=== PATIENT | female | born 2000 | race African-American/Black ===

== ENCOUNTER → 2024-06-10 13:45 | Outpatient (REF) | payer BC, SELFPAY | LOC: HWRAD 13:45 | PROVIDERS: ATTENDING PHYSICIAN Internal Medicine Rheumatology; FAMILY PHYSICIAN Physician Assistant Medical | DX: M25.50 Pain in unspecified joint (principal); M25.559 Pain in unspecified hip; M24.9 Joint derangement, unspecified | CPT/HCPCS: 72070; 72110; 72170; 73502 ==

== ENCOUNTER 2025-01-24 12:38 | Inpatient (IN) | payer BC, SELFPAY ==
[2025-01-24] VITALS (57 sets, daily range): BP systolic 81–155; BP diastolic 50–105; BMI 30.6
[2025-01-24 10:55] LABS: Glucose - Point of Care 89 mg/dl (70-99)
--- NOTE | 2025-01-24 10:55 | ED.GENMED ---
History of Present Illness
General
Chief Complaint: Unresponsive
Source: ambulance crew
Exam Limitations: clinical condition
Time Seen by Provider: 01/24/25 10:48
History of Present Illness
History of Present Illness:
See MDM
Past History
Past History
ED Past Medical History: Psychiatric
ED Past Surgical History: None
Social History
Tobacco: Non-smoker
Alcohol: None
Drug: None
Phy Exam
Physical Exam
Physical Exam:
See MDM
Course
Orders/Labs/Results
Orders:
Orders
01/24/25 10:48
Test Result ONCE
01/24/25 10:49
Cardiac Monitoring- Treatment ONCE
one to one [ED Special Safety Observation] ONCE
Observation level: One to One
01/24/25 10:53
Electrocardiogram (*1) Urgent
Reason for Study: Other
Other Reason for Exam: overdose
Electrocardiogram (*1) Urgent
Reason for Study: QTc Monitoring
EKG- Treatment ONCE
01/24/25 11:02
Ondansetron Injectable [Zofran] 4 mg IV NOW STA
01/24/25 11:03
Ondansetron Injectable [Zofran] 4 mg .ROUTE .STK-MED ONE
01/24/25 11:12
Fentanyl Citrate/Pf [Sublimaze] 100 mcg .ROUTE .STK-MED ONE
Propofol 1,000,000 Mcg/100 ml [Diprivan] 1,000,000 mcg in 100 ml .ROUTE .STK-MED
01/24/25 11:13
Acetaminophen Urgent
Alcohol Urgent
Complete Blood Count/With Diff Urgent
Comprehensive Metabolic Panel Urgent
HCG, Serum Qualitative Screen Urgent
Salicylate Urgent
Triglycerides Routine
Comment: baseline levels with propofol infusion
01/24/25 11:15
Propofol 1,000,000 Mcg/100 ml [Diprivan] 1,000,000 mcg in 100 ml IV NOW
Indication:: Light Sedation
Begin Infusion:: Now
Goal:: RASS 0 to -2
Maximum dose in mcg/kg/min:: 50
Initial dose based on RASS:: Yes
If RASS is:: +1 or pt hemodynamically unstable (SBP < 90mmHg), initiate at 10 mcg/kg/min
If RASS is:: +2, initiate at 20 mcg/kg/min
If RASS is:: greater than or equal to +3, initiate at 30 mcg/kg/min
Titration Instructions:: Titrate by 5-10 mcg/kg/min every 5 minutes until RASS 0 to -2 achieved.
Taper Instructions:: If RASS is at or below goal for 4 consecutive hours decrease infusion by
Taper Instructions:: 5-10 mcg/kg/min every 2 hours to off.
Over-sedation Instructions:: If CPOT 0-2 (at goal) AND RASS -3 to -5 (below goal) decrease sedative by
Over-sedation Instructions:: 50% first. If pain score remains at goal and RASS remains below goal in
Over-sedation Instructions:: 1 hour, decrease opioid infusion by 50%.
Notify provider:: immediately if patient exhibits signs/symptoms of propofol-related
Notify provider:: infusion syndrome.
Additional Instructions:: Patient MUST be mechanically ventilated and MUST receive analgesia.
01/24/25 11:16
Fentanyl Citrate/Pf [Sublimaze] 100 mcg IV NOW STA
01/24/25 11:24
0.9% Sodium Chloride 1000 ml [Nss] 1,000 ml IV BOLUS
01/24/25 11:27
Urine Drug Abuse Screen Urgent
Date Specimen was Collected: 01/24/25
Time Specimen was Collected: 11:26
01/24/25 11:29
CR Chest Portable - 1 View Urgent
Reason For Exam: tube placement verification
01/24/25 11:37
Straight cath- Treatment ONCE
01/24/25 11:43
Etomidate [Amidate] 40 mg .ROUTE .STK-MED ONE
Sterile Water [Sterile Water For Injection] 10 ml .ROUTE .STK-MED ONE
Vecuronium [place] [Norcuron] 10 mg .ROUTE .STK-MED ONE
01/24/25 11:50
Ampicillin/Sulbactam 3 G [Unasyn] 3 gm 0.9% Sodium Chloride 100 ml [Nss] 100 ml IV NOW
01/24/25 12:20
Admit/Transfer Patient As Directed
Co-Sign Provider:
Level of Care: Inpatient admission
Assign to:: ICU
Physician / Group: Dr. Russo
Diagnosis: Drug and alochol overdose
Reason for Hospitalization: Drug and alochol overdose
Expected length of stay greater than two midnights?: Yes
ELOS- Estimated Length of Stay in days: 3
I certify the patient meets the requirements for IP care: Yes
PRN Pain Medication Management As Directed
May give lesser potent ordered pain med per pt: Yes
preference::
Protocol:: Medication orders for pain may be administered in a
manner that supports deferring to patient preference
when the pt is:
- Requesting an ordered lesser potent pain medication.
Least to most potent pain medications are defined
as: acetaminophen < NSAID < tramadol < opioids
(morphine, oxycodone, hydromorphone).
- Requesting a lesser dose of the same medication IF
ORDERED.
- Requesting a less intrusive route of administration
if both routes are prescribed by the provider (PO <
IV).
Abnormal Lab Results
01/24/25
11:13
Hgb 11.5 L g/dL
(12.0-16.0)
Hct 35.7 L %
(37.0-47.0)
MCV 72.4 L fL
(81.0-99.0)
MCH 23.3 L pg
(27.0-31.0)
MCHC 32.2 L g/dL
(33.0-37.0)
MPV 10.6 H fL
(7.4-10.4)
Neutrophils % 36.3 L %
(42.2-75.2)
Lymphocytes % 52.0 H %
(20.5-51.1)
Chloride 110 H mmol/L
(98-107)
Carbon Dioxide 20 L mmol/L
(22-30)
Glucose 122 H mg/dl
(70-99)
Salicylates < 1.0 L mg/dl
(2.0-20.0)
Acetaminophen < 10 L ug/ml
(10-30)
01/24/25 11:13
01/24/25 11:13
Vital Signs
Initial and Last Documented VS:
Initial Vital Signs
Temp Pulse Resp Pulse Ox
97.9 F 107 14 98
01/24/25 10:47 01/24/25 10:47 01/24/25 10:47 01/24/25 10:47
Last Documented Vital Signs
Temp Pulse Resp BP Pulse Ox
97.9 F 117 17 115/76 100
01/24/25 10:47 01/24/25 12:20 01/24/25 12:20 01/24/25 12:20 01/24/25 12:20
Procedures
Intubations
Procedure completed by: Ever Figueroa DO
Method of Intubation: glidescope
Tube size (cm): 7.5
Placement confirmed by: auscutation, CXR, capnography and direct visualization
Breath sounds after intubation: equal
Intubation complications: no complications
MDM/Problems Addressed
Differential Diagnosis Includes:
HPI and MDM Narrative:
24-year-old female presenting for evaluation of overdose. Per EMS, they were called when the boyfriend had gotten a call from the patient. He indicates that she took about 25 to 30 tablets of gabapentin (dosing unknown) and an unknown amount of
alcohol. Per EMS, she was awake and alert when they arrived. When she presented, she is now minimally responsive. She does respond to painful stimuli but does not respond to verbal stimuli. Pupils are dilated. No evidence of self injury noted.
During my evaluation, patient started to vomit. It became a concern when it was noted that vomit was still in her airway. Given the airway compromise, patient was intubated for her safety
Physical exam
General: Minimally responsive
HEENT: Not protecting airway, pupils dilated but responsive
Neck: appears supple
CV: No evidence of cyanosis
Resp: No accessory muscle use
Abd: Non-distended
Extremities: No deformities
Neuro: Not alert, GCS of 7
Psych: Flat affect
Skin: Intact
Problems Addressed including Acute and Chronic Conditions affecting care:
1. Overdose
Acuity: acute
Prognosis: unstable
Details: Given the inability to protect airway, patient intubated for her Safety
2. Aspiration
Acuity: acute
Prognosis: stable
Details: Unasyn started
Updates
11:17 AM patient admitted without difficulty. Some food product was noted in the airway.
I attempted to call mother but no answer
Patient started on Unasyn for prophylaxis due to aspiration
12:20 PM family at bedside and indicate that she has tried to hurt herself in the past. Mother took a bottle of gabapentin. It was 300 mg tablets
12:45 PM case discussed with poison control and spoke to nurse Vanita. She discussed symptomatic care
Differential Diagnosis (but not limited to): Intentional overdose, alcohol intoxication
Testing considered: Chest x-ray
Drug therapy (if applicable): OTC meds, please see d/c instruction regarding Rx drugs
Amount and/or Complexity of Data Reviewed
Clinical info obtained from: EMS
External data reviewed: N/A
Labs I independently reviewed (but not limited to): Elevated alcohol level
Radiology: N/A
Pulse Ox: not hypoxic
EKG independently reviewed: Sinus tachycardia, normal axis, no STEMI, intervals within normal limits
Sheet Cutting Operator: Sinus tachycardia
Critical Care: the high probability of a clinically significant, sudden or life threatening deterioration of the neuro vascular system(s) required my full and direct attention, intervention and personal management. The aggregate critical care time
was 33 minutes. This time is in addition to time spent performing reported procedures but includes the following:
[x] Data Review and interpretation
[x] Patient assessment and monitoring of vital signs
[x] Documentation
[x] Medication orders and management
Risk of Complication:
Social Determinants of health: Good social support
Discussed with other providers: Hospitalist
Escalation of Care includes Admit/Obs: Given the overdose and inability protect airway, patient intubated and admitted
Occasional wrong word or 'sound a like' substitutions may have occurred due to the inherent limitations of voice recognition software. Read the chart carefully and recognize, using context, where substitutions have occurred.
*Critical Care Note
Total Time (30-74mins, 75-104mins- exclusive of procedures): 33 min
ED Attending Note
-
Portions of this chart may have been created with voice recognition software.� Occasional wrong word or��sound alike� substitutions may have occurred due to the inherent limitations of voice recognition software.
Discharge Plan
Departure
Patient Disposition: Admit
Date of Disposition: 01/24/25
Time of Disposition: 11:50
Admit to: ICU
Presentation/result/management discussed w/ accepting MD/DO: Hospitalist
Discharge Problem:
Overdose, Aspiration into airway, Respiratory distress
Interventions
Interventions:
*Risk Screen - Suicide Last Done: 01/24/25 10:47
*General Assessment Last Done: 01/24/25 10:47
*Neglect/Abuse Screening Last Done: 01/24/25 10:47
*ED- Fall Risk Assessment Last Done: 01/24/25 11:23
*ED COVID-19 Vaccine History Last Done: 01/24/25 11:23
ED- Neurological Assessment Last Done: 01/24/25 11:21
[2025-01-24] MEDS: ZOFRAN 4 MG IV (11:03)
[2025-01-24] MEDS: SUBLIMAZE 100 MCG IV ×2 (11:15→12:47)
[2025-01-24] MEDS: DIPRIVAN 100 IV ×3 (11:19→17:57)
[2025-01-24] MEDS: NSS 1000 IV ×2 (11:24→22:19)
[2025-01-24 11:34] LABS: HCG, Serum Qualitative Screen Negative
[2025-01-24 11:37] LABS: ALT (SGPT) < 10 U/L (0-35); AST (SGOT) 16 U/L (14-36); Acetaminophen < 10 ug/ml (10-30); Alcohol 107 mg/dl; Alkaline Phosphatase 83 U/L (38-126); Blood Urea Nitrogen 8 mg/dl (7-17); Calcium 9.4 mg/dl (8.4-10.2); Carbon Dioxide 20 mmol/L (22-30); Chloride 110 mmol/L (98-107); Estimated Creatinine Clearance 124 ml/min; Glucose 122 mg/dl (70-99); Potassium 3.6 mmol/L (3.5-5.1); Salicylate < 1.0 mg/dl (2.0-20.0); Sodium 142 mmol/L (135-145); Total Bilirubin 0.4 mg/dl (0.2-1.3); Total Protein 7.2 g/dl (6.3-8.2); Triglycerides 62 mg/dl (10-149); eGFR > 60.00
[2025-01-24 11:40] LABS: Hematocrit 35.7 % (37.0-47.0); Hemoglobin 11.5 g/dL (12.0-16.0); Mean Corp Hgb Conc. 32.2 g/dL (33.0-37.0); Mean Corpuscular Hgb 23.3 pg (27.0-31.0); Mean Corpuscular Volume 72.4 fL (81.0-99.0); Mean Platelet Volume 10.6 fL (7.4-10.4); Platelet Count 388 10^3/uL (130-400); Red Blood Cell Count 4.93 10^6/uL (4.20-5.40); Red Cell Dist. Width 14.2 % (11.5-14.5); White Blood Cell Count 5.5 10^3/uL (4.8-10.8)
--- NOTE | 2025-01-24 11:42 | PHANOTE ---
Med Rec Note:
Unable to interview pt, pt being intubated. Home med list compiled from ECW and Dr Guthrie. Left unconfirmed.
[2025-01-24 11:47] LABS: Amphetamines Negative (Negative); Barbiturates Negative (Negative); Benzodiazepines Negative (Negative); Buprenorphine Negative (Negative); Cocaine Negative (Negative); Marijuana Negative (Negative); Methadone Negative (Negative); Methamphetamines Negative (Negative); Opiates Negative (Negative); Phencyclidine Negative (Negative); Tricyclic Antidepressants Negative (Negative)
[2025-01-24 12:06] LABS: % Basophils 1.1 % (0-2); % Immature Granulocytes 0.2 % (0-0.5); % Monocytes 8.4 % (1.7-9.3); % Neutrophils 36.3 % (42.2-75.2); Absolute Basophils 0.1 10^3/uL (0-0.2); Absolute Eosinophils 0.1 10^3/uL (0-0.7); Absolute Lymphocytes 2.9 10^3/uL (1.2-3.4); Absolute Monocytes 0.5 10^3/uL (0.1-0.6); Nucleated Red Blood Cells % 0 %
[2025-01-24] MEDS: UNASYN IV (12:26)
--- NOTE | 2025-01-24 12:46 | CON.INTV ---
Consultation
Consultation Request
Date/Time Consultation Requested: 01/24/2025
Date/Time Consultation Performed: 01/24/2025
Medical History
-
Chief Complaint: overdose
History of Present Illness:
Ms. Aleisha Artis is a 24yo F w psychiatric pmh presenting to ED for evaluation of overdose. Pt called her boyfriend, who then called EMS. He indicates she took 25-30 tablets of gabapentin with alcohol. She was awake and alert upon EMS
arrival. On ED arrival, she is unresponsive to verbal stimuli and vomiting. Vomit noted in airway. Pt intubated to protect airway.
Past Medical History
Past Medical History: Psychiatric
Past Surgical History: None
Allergies / Home Medications
Allergies
Allergy/AdvReac Type Severity Reaction Status Date / Time
coconut Allergy itching in Verified 01/24/25 10:52
throat
mold Allergy Unknown Verified 01/24/25 10:52
pineapple Allergy itching in Verified 01/24/25 10:52
throat
shrimp Allergy itching in Verified 01/24/25 10:52
throat
mildew Allergy Unknown Uncoded 08/13/17 04:33
trees Allergy Unknown Uncoded 08/13/17 04:33
Home Medications
�Medication �Instructions �Recorded �Confirmed �Last Taken �Type
duloxetine 60 mg capsule,delayed 60 mg PO DAILY 01/24/25 Unknown History
release
gabapentin 100 mg capsule 100 mg PO TID 01/24/25 Unknown History
gabapentin 300 mg capsule 300 mg PO BID 01/24/25 Unknown History
norethindrone 1.5 mg-ethinyl 1 tab PO DAILY 01/24/25 Unknown History
estradiol 30 mcg(21)/iron 75 mg(7)
tablet (Junel FE .02/28 (28))
topiramate 50 mg tablet 50 mg PO DAILY 01/24/25 Unknown History
Review of Systems
-
Unable to Obtain full review of systems at this time due to: Patient Intubation
Vitals / Labs / Diagnostic Testing
Vital Signs
Temp Pulse Resp BP Pulse Ox
97.9 F 117 17 115/76 100
01/24/25 10:47 01/24/25 12:20 01/24/25 12:20 01/24/25 12:20 01/24/25 12:20
Lab Data
01/24/25 11:13
01/24/25 11:13
Diagnostic Testing:
Physical Exam
-
HEENT: Normocephalic, Moist Mucous Membranes, Other (NG tube) and Other (pt intubated)
Cardiovascular: S1/S2 and Regular Rhythm
Respiratory: Clear and Non-Labored Respirations
GI: Soft, Non Distended, Flat, Non Tender and Normal Bowel Sounds
Skin: Warm
Assessment
-
Assessment:
24yo F w psychiatric pmh presenting to ED for evaluation of overdose. Pt called her boyfriend, who then called EMS. He indicates she took 25-30 tablets of gabapentin with alcohol. Pt intubated to protect airway in setting of vomiting.
Plan:
Drug and Alcohol Overdose
- UDS positive for salicylates and acetaminophen and alcohol
- pt intubated to protect airway
- ECG: sinus tachycardia, nonspecific T wave abnormality
- CXR: no focal airspace disease
- thiamine, folic acid
- ativan, fental prn
- abg, mg, phosphous in AM
- TSH, vit B12, TG in am
Aspiration
- NPO
- aspiration precautions
- CXR clear for pneumonia
Psychiatric Illness
- hold home medicines
Microcytic anemia
- workup outpt
- monitor
- repeat CBC
Diet: NPO
DVT ppx: lovenox
Code status:
[2025-01-24] MEDS: SUBLIMAZE 100 IV (13:17)
--- NOTE | 2025-01-24 13:54 | PTCARENOTE ---
Pt admitted from ED at 1300. Intubated and ventillated on propofol gtt for rass -2. See assessment. CHG bath performed. Purewick placed. VSS. Restraints applied for protection. Plan of care discussed with family. Big Data Admin to bedside.
[2025-01-24 14:00] LABS: B.E. -5.3 mmol/L; HCO3 18.6 mmol/L (21-28); PCO2 30 mmHg (32-35); PO2 268 mmHg (83-108)
[2025-01-24] MEDS: SUBLIMAZE 90 MCG IV (14:22)
[2025-01-24] MEDS: FOLVITE 50.2 MG IV (14:38)
[2025-01-24] MEDS: KCL 270 MEQ IV (14:41)
[2025-01-24] MEDS: THIAMINE INJECTION 200 MG IV (14:41)
[2025-01-24 14:50] LABS: Magnesium 2.1 mg/dl (1.6-2.3)
--- NOTE | 2025-01-24 14:56 | HPS.HSE ---
Addendum entered and electronically signed by Apryl Russo MD 01/24/25 16:46:
I personally performed a history and physical exam of the patient and discussed management with the resident. I reviewed the resident's note and agree with the documented findings and plan of care HPI/CC unless documented in [facility].
GENERAL: well developed, well nourished, female in no apparent distress
HEENT: NC/AT intubated
HEART: regular rate and rhythm, +S1, +S2
LUNGS : clear to auscultation bilaterally
ABDOM: soft, nontender, nondistended, + bowel sounds
EXT: no cyanosis, clubbing, or edema
NEUROLOGIC: intubated and sedated
drug overdose--presumed intentional with taking reported 25 tabs of gabapentin + ETOH--urine tox screen negative, blood alcohol level 0.1--admit to ICU--intubated for airway protection--consult bottling room worker--wean to extubation as per pulm--cont
propofol and fentanyl--cont unasyn for possible aspiration pna--restraints PRN--poison control contacted by Dr. Figueroa (ED)--symptomatic management
ETOH intoxication--alcohol level 0.1--cont MSAS--cont thiamine and folate to prevent Wernicke's encephalopathy
Presumed chronic iron deficiency anemia--from monthly menses--Hemoglobin is 11.5 and MCV is 72.4--Ordered iron, TIBC, ferritin, folate, B12, folate
Depression-- Has a previous history of depression documented in prior records and was stated by family members at bedside-- Hold gabapentin, duloxetine, topiramate--Once patient is extubated, consult psychiatry and possibly BCares
DVT prophy--Lovenox
code status--Full code
Original Note:
Family Physician
-
Family Physician: An Ferreira
Chief Complaint
-
Drug overdose
History of Present Illness
24 year old female patient with past medical history of depression presented to [facility] for drug overdose. She had taken 25 tablets of gabapentin with alcohol and then called her boyfriend before passing out. Boyfriend then called EMS.
She was unresponsive when she presented to the emergency department and had vomiting so was then intubated to protect her airway.
Medical History
Past Medical History
Past Medical History: Reports Psychiatric (Depression)
Past Surgical History: Reports None
Social History
Unable to obtain full social history at this time due to: Patient Intubation
Tobacco: Vaping
Alcohol: None
Drug: None
Personal: Partner
Living: With Family
Employment: Employed
Family History
Family History: Not pertinent
Allergies / Home Medications
Allergies reflects when Allergies were last updated in [facility] [facility].
Home Medications with original date entered in [facility]
Allergy/Medication List:
Allergies
Allergy/AdvReac Type Severity Reaction Status Date / Time
coconut Allergy itching in Verified 01/24/25 10:52
throat
mold Allergy Unknown Verified 01/24/25 10:52
pineapple Allergy itching in Verified 01/24/25 10:52
throat
shrimp Allergy itching in Verified 01/24/25 10:52
throat
mildew Allergy Unknown Uncoded 08/13/17 04:33
trees Allergy Unknown Uncoded 08/13/17 04:33
Home Medications
duloxetine 60 mg capsule,delayed release 60 mg PO DAILY 01/24/25
gabapentin 100 mg capsule 100 mg PO TID 01/24/25
gabapentin 300 mg capsule 300 mg PO BID 01/24/25
norethindrone 1.5 mg-ethinyl estradiol 30 mcg(21)/iron 75 mg(7) tablet (Junel FE 1.5/30 (28)) 1 tab PO DAILY 01/24/25
topiramate 50 mg tablet 50 mg PO DAILY 01/24/25
If medication reconciliation has not been performed, why?: Unresponsive
Review of Systems
-
Unable to obtain full review of systems at this time due to: Patient Intubation
Physical Exam
Vital Signs
Vital Signs
Temp Pulse Resp BP Pulse Ox
97.7 F 81 18 102/70 100
01/24/25 13:16 01/24/25 14:15 01/24/25 14:15 01/24/25 14:15 01/24/25 14:15
Physical Exam
General: Intubated
Respiratory: Clear
Cardiac: S1/S2 and Regular Rhythm
GI: Soft, Non Distended, Normal Bowel Sounds and Other (Patient has nasogastric tube)
Skin: Warm and Dry
Neuro: Sedated
Laboratory Results
-
01/24/25 11:13
01/24/25 11:13
Laboratory Results
pH 7.40 (7.35-7.45) 01/24/25 13:40
pCO2 30 mmHg (32-35) L 01/24/25 13:40
pO2 268 mmHg (83-108) H 01/24/25 13:40
HCO3 18.6 mmol/L (21-28) L 01/24/25 13:40
Total Bilirubin 0.4 mg/dl (0.2-1.3) 01/24/25 11:13
AST 16 U/L (14-36) 01/24/25 11:13
ALT < 10 U/L (0-35) 01/24/25 11:13
Alkaline Phosphatase 83 U/L (38-126) 01/24/25 11:13
Data Reviewed
-
Lab Data: Labs Reviewed by me and Discussed with Physician
Impression/Plan
-
Medications are not yet confirmed.
Unintentional drug and alcohol overdose:
- Due to vomiting, patient was intubated to protect her airway and prevent aspiration because with vomiting and decreased mental status she is at high risk for aspiration.
- Propofol was used to sedate patient as it is easy to titrate and has quick onset of action
- Coal Cager is consulted
- Urine drug screen positive for alcohol
- Started on Unasyn for aspiration pneumonia
- Start patient on MSAS protocol to prevent Wernicke's encephalopathy, correct any nutritional deficiencies, and manage electrolyte imbalances
- Soft restraints to prevent patient from removing her lines or self extubating during a period of agitation from alcohol withdrawal
- Plan to extubate in 24 hours
- Keep potassium over 4 and magnesium over 2 to prevent cardiac arrhythmias, keep monitoring electrolytes
- Potassium is 3.6, potassium was ordered
- ED doctors called poison control whom suggested symptomatic management
Presumed chronic iron deficiency anemia:
- Hemoglobin is 11.5 and MCV is 72.4
- Ordered iron, TIBC, ferritin, folate, B12, folate
Depression:
- Has a previous history of depression documented in prior records and was stated by family members at bedside.
- Hold gabapentin, duloxetine, topiramate
- Check TSH in the morning
- Once patient is extubated, consult psychiatry
DVT prophylaxis is Lovenox
Full code
--- NOTE | 2025-01-24 15:16 | CM ---
Patient seen at bedside in ED with physicians and intubated. Patient mother and partner at bedside. Patient s/p presumed overdose, per mother and partner. Patient goes back and forth between homes, currently was staying with mother. Patient PCP is
Dr. Ferreira and Xenia MCKEON from [facility]. Patient uses the [facility] in [place] for pharmacy needs per patient mother. Patient information unavailable at this time other than patient mother/partner. Patient with no DME at this
time. CM will continue to follow for discharge planning needs.
Plan; pending functional status at this time.
[2025-01-24] MEDS: SUBLIMAZE 50 MCG IV (15:25)
[2025-01-24] MEDS: PRECEDEX 100 IV (15:53)
--- NOTE | 2025-01-24 17:41 | PTCARENOTE ---
Pt awake, following commands, thrashing in bed attempting to extubate self. Machine Feller to bedside and orders precedex to be started, Propofol to be weaned off and SAT/SBT. During SBT pt would have spells of appropriate breathing followed by
apneic spells. Fentanyl ordered off and apnea continues. Pt changed to SIMV and continue to await increased resp drive for SBT.
--- NOTE | 2025-01-24 17:52 | PTCARENOTE ---
Children Counselor to bedside and ordered sedation to restart. Plan for SAT/SBT tomorrow
[2025-01-24] MEDS: LOVENOX 40 MG SC (17:56)
--- NOTE | 2025-01-24 20:27 | PTCARENOTE ---
Handoff report received from off going RN. Dual RN gtt signoff completed. Patient received in bed on mechanical ventilation. Propofol gtt at 20 mcg/kg/min (10.9 ml/hr), Precedex at 0.4 mcg/kg/hr (8.9 ml/hr) , and Fentanyl gtt at 25 mcg/hr (2.5
ml/hr). Propofol and Precedex placed on hold for assessment. The patient opened their eyes to verbal commands. MAEx4. Follows simple commands. Patient reached multiple times for her ETT. Plan of care for the shift reviewed with the patient and
reorientation provided. Reviewed need for restraints with the patient. The pt nodded their understanding and continued to reach for their ETT. Propofol and Precedex restarted. NSR on the monitor. Temp 96.8 F. Multiple warm blankets placed. Room
temperature adjusted. +pulses throughout. SpO2 at 100 % on mech. ventilation. #7.5 ETT at 24 at the left lip on setting SIMV 14/450/+5/40%. Crackles to bases. PT suctioned for scant amount. +BS. Lt nare NGT to LIWS. Placement verified via
auscultation. Purewick in place. Mouth care provided. Patient turned and repositioned. Family at the bedside. Safety measures maintained.
--- NOTE | 2025-01-24 22:27 | PTCARENOTE ---
Patients SBP has been in the mid 80s for 2 hours. MAP >65. LINUX SYSTEMS ADMINISTRATOR made aware and Normal Saline bolus 1 liter and LR maintenance fluids ordered.
[2025-01-24] MEDS: LR 1000 IV (23:26)
[2025-01-25] VITALS (36 sets, daily range): BP systolic 91–142; BP diastolic 55–112; PULSE 48; BMI 30.6
[2025-01-25] MEDS: DIPRIVAN 100 IV (03:22)
[2025-01-25 04:06] LABS: B.E. -3.7 mmol/L; HCO3 20.1 mmol/L (21-28); PCO2 31 mmHg (32-35); PO2 240 mmHg (83-108); pH 7.42 (7.35-7.45)
[2025-01-25 04:09] LABS: O2 Therapy 40%
[2025-01-25 04:42] LABS: PT 14.5 Sec (11.4-14.6)
[2025-01-25 04:47] LABS: Hematocrit 28.4 % (37.0-47.0); Hemoglobin 9.3 g/dL (12.0-16.0); Mean Corp Hgb Conc. 32.7 g/dL (33.0-37.0); Mean Corpuscular Hgb 23.5 pg (27.0-31.0); Mean Corpuscular Volume 71.7 fL (81.0-99.0); Mean Platelet Volume 9.9 fL (7.4-10.4); Platelet Count 232 10^3/uL (130-400); Red Blood Cell Count 3.96 10^6/uL (4.20-5.40); White Blood Cell Count 3.9 10^3/uL (4.8-10.8)
[2025-01-25 05:06] LABS: Blood Urea Nitrogen 6 mg/dl (7-17); Calcium 8.4 mg/dl (8.4-10.2); Carbon Dioxide 18 mmol/L (22-30); Chloride 115 mmol/L (98-107); Estimated Creatinine Clearance > 125 ml/min; Glucose 92 mg/dl (70-99); Iron 58 ug/dl (37-170); Phosphorus 2.9 mg/dl (2.5-4.5); Potassium 3.9 mmol/L (3.5-5.1); Sodium 143 mmol/L (135-145); eGFR > 60.00
[2025-01-25 05:14] LABS: Magnesium 1.7 mg/dl (1.6-2.3)
[2025-01-25 05:15] LABS: Percent Saturation 21 % (20-50); Total Iron Binding Capacity 272 ug/dl (265-497)
[2025-01-25 05:21] LABS: % Basophils 0.5 % (0-2); % Eosinophils 3.1 % (0-6); % Lymphocytes 53.7 % (20.5-51.1); % Monocytes 7.8 % (1.7-9.3); % Neutrophils 34.9 % (42.2-75.2); Absolute Eosinophils 0.1 10^3/uL (0-0.7); Absolute Lymphocytes 2.1 10^3/uL (1.2-3.4); Absolute Monocytes 0.3 10^3/uL (0.1-0.6); Absolute Neutrophils 1.4 10^3/uL (1.4-6.5); Nucleated Red Blood Cells % 0 %; Reticulocyte Count 1.2 % (0.4-2.8)
[2025-01-25 05:28] LABS: TSH 7.95 uIU/ml (0.47-4.68)
[2025-01-25] MEDS: SUBLIMAZE 50 MCG IV (05:56)
[2025-01-25 06:59] LABS: Vitamin B12 304 pg/ml (239-931)
--- NOTE | 2025-01-25 07:33 | W.PN.INTV ---
Today's Communication / Plan
Recommendations
- Patient tolerated SAT/SBT well, successfully extubated
- Psychiatric consult
- If patient continues to do well by end of the day, currently transferred out of ICU, cabin cleaner service will sign off, please call as needed
Assessment
-
24yo F w psychiatric pmh presenting to ED for evaluation of overdose. Pt called her boyfriend, who then called EMS. He indicates she took 25-30 tablets of gabapentin with alcohol. Pt intubated to protect airway in setting of vomiting.
#1. Drug overdose, suspect Gabapentin and alcohol, with resultant respiratory failure. Patient was intubated due to her inability to protect airway and aspiration with vomiting.
- Patient awake alert this morning, successfully extubated 01/25, transition to nasal cannula
- ABG reviewed, unremarkable pH and PO2 normal
- No obvious infiltrate noted on chest x-ray, hold further antibiotics for now.
- Continue to hold gabapentin
- Continue thiamine and folic acid
- Off propofol, fentanyl and Precedex
- Ativan 2 mg IV every 4 as needed agitation
- Once patient improved and ready to come off mechanical ventilation, will request psychiatry consultation
- B12 304, TSH slightly elevated at 7.9
- DVT prophylaxis with subcu Lovenox
- Psychiatric consult
Critical Care time 45 mins -- The patient is admitted for acute critical illness for the treatment of vital organ failure and/or prevention of further life-threatening conditions. Total care includes time spent in review of history, physical exam,
medications, hemodynamic/ventilator parameters, laboratory data, imaging and discussion with house staff, pharmacy, respiratory therapy, manifest/order organizer print orders, and nursing.
Subjective Dataa
Subjective Data
Date of Service:
Date of Service: January 25, 2025
Subjective:
Patient examined before extubation and then again after she was extubated. Appears comfortable, in no acute distress.
Review of Systems
Genitourinary: Other (All 14 systems reviewed and negative except as stated above in the history of present illness.)
Objective Data
Data Reviewed
Vital Signs / I&O / Oxygen:
Vital Signs
Temp Pulse Resp BP Pulse Ox
97 F 52 14 98/75 100
01/24/25 23:27 01/25/25 06:30 01/25/25 06:30 01/25/25 06:30 01/25/25 06:30
Intake and Output
01/24/25 01/25/25 01/26/25
06:59 06:59 06:59
Intake Total 297.1 / 297.1
Output Total 1040 / 1040
Balance -742.9 / -742.9
SaO2 [P-SIMV] 100
SaO2 [A/C] 100
SaO2 100
Physical Exam
General: Comfortable
HEENT: Normocephalic
Cardiovascular: S1-S2
Respiratory: Clear and Non-Labored Respirations
GI: Soft and Non Distended
Neurology: Awake and Alert
Skin: Warm
Labs/Micro/Reports
Lab Data
01/25/25 04:24
01/25/25 04:24
Laboratory Results
01/24/25 01/25/25 01/25/25
13:40 03:55 04:24
PT 14.5
INR 1.10
pH 7.40 7.42
pCO2 30 L 31 L
pO2 268 H 240 H
HCO3 18.6 L 20.1 L
O2 Delivery Level 40%
[2025-01-25 08:34] LABS: Ferritin 28.6 ng/ml (6.24-137)
[2025-01-25] MEDS: LR 1000 IV (08:58)
--- NOTE | 2025-01-25 09:07 | PTCARENOTE ---
Upon initial assessment, patient was lightly sedated and following commands/nodding head appropriately. ICU MD was also at bedside and discussed plan to extuvate with patient and RN. SBT was initiated around 0800, patient tolerating trial thus far
and expressed with hand gestures that she really wants the breathing tube out. MD placed ok to extubate order and RN notified RT. Pt continues to be on IVF per order. See MAR/flowsheets for further care details.
[2025-01-25] MEDS: MIRALAX TUBE (09:57)
[2025-01-25 10:04] LABS: Folate 6.4 ng/ml (2.76-20)
[2025-01-25] MEDS: THIAMINE INJECTION 200 MG IV (10:38)
--- NOTE | 2025-01-25 12:33 | PTCARENOTE ---
Patient was extubated this morning around 1015 am, tolerating po liquid intake well, RN reached out to MD to place appropriate diet order. RN walked with patient to the bathroom for 1x void. Pt is quiet, withdrawn, but nodding yes/no appropriately.
Pt family and significant other is at the bedside. RN relayed to patient and family that plan is for pt to see psychiatrist and that we will come up with a safe discharge plan.
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
[2025-01-25] MEDS: FOLVITE 50.2 MG IV (14:08)
[2025-01-25] MEDS: TYLENOL 650 MG PO ×2 (14:16→21:28)
--- NOTE | 2025-01-25 14:50 | W.PN.HOSP.TC ---
Addendum entered and electronically signed by Apryl Russo MD 01/25/25 15:20:
I saw and evaluated the patient independently. I reviewed the resident�s note and agree with findings and plan as documented by Dr. Lazar.
GENERAL: well developed, well nourished, female in no apparent distress
HEENT: NC/AT intubated
HEART: regular rate and rhythm, +S1, +S2
LUNGS : clear to auscultation bilaterally
ABDOM: soft, nontender, nondistended, + bowel sounds
EXT: no cyanosis, clubbing, or edema
NEUROLOGIC: intubated and sedated
drug overdose-- intentional (pt confirmed intent to psych) with taking reported 25 tabs of gabapentin + ETOH--urine tox screen negative, blood alcohol level 0.1--intubated for airway protection now extubated--apprec art installer--stop propofol and
fentanyl-- unasyn stopped per pulm--restraints PRN--poison control contacted by Dr. Figueroa (ED)--symptomatic management--apprec psych input--1:1
ETOH intoxication--alcohol level 0.1--cont MSAS--cont thiamine and folate to prevent Wernicke's encephalopathy
hypomagnesemia--replete
Presumed chronic anemia--from monthly menses--not iron deficient--B12 low normal, will replete
abnormal TSH--repeat--no h/o of hypothyroid
Depression-- Has a previous history of depression documented in prior records and was stated by family members at bedside-- Hold gabapentin, duloxetine, topiramate--apprec psychiatry and possibly BCares
DVT prophy--Lovenox
code status--Full code
Original Note:
Today's Communication/Plan
-
- continue 1:1
- Follow psychiatry
- trend CBC and CMP
Assessment / Plan
Assessment / Plan
confirmed intentional drug and alcohol overdose
suicide attempt:
- Patient was successfully extubated today
- Urine drug screen positive for alcohol on admission
- Spring Production Supervisor signed off
- Unasyn was discontinued
- Start patient on MSAS protocol to prevent Wernicke's encephalopathy, correct any nutritional deficiencies, and manage electrolyte imbalances
- Soft restraints to prevent patient from removing her lines or self extubating during a period of agitation from alcohol withdrawal
- Keep potassium over 4 and magnesium over 2 to prevent cardiac arrhythmias, keep monitoring electrolytes
- Potassium is 3.9, magnesium 1.7, magnesium sulfate ordered
- Upgraded patient to clear liquids
- Speech therapy consulted
- 1:1 after extubation
presumed drug induced Leukopenia:
- Most likely cause is her at home medication of duloxetine, gabapentin, topiramate since they can cause decreased WBC count
- continue to trend wbc count
Hypothyroidism:
- TSH level is 7.9
- Ordered a T4
- No clinical fx of hypothyroidism, no previous history of hypothyroidism, will continue to observe tsh levels
Presumed thalassemia trait vs anemia of chronic disease:
- Hemoglobin is 9.3 and MCV is 72.4, RDW normal
- Ordered iron, TIBC which were normal
- ferritin,folate,b12 normal
Depression:
- Has a previous history of depression documented in prior records and was stated by family members at bedside.
- Hold gabapentin, duloxetine, topiramate
- Psych following, patient has an extensive psychiatric history with fibromyalgia, depression, substance abuse, ptsd, suicide attempt
DVT prophylaxis is Lovenox
Full code
Anticipated Discharge: 24 - 48 hours
Subjective/Interval History
-
Date of Service: January 25, 2025
Patient was extubated today however did not want to give a history.
Objective Data
-
Labs:
Laboratory Results
01/25/25 01/25/25
03:55 04:24
WBC 3.9 L
Hgb 9.3 L
Hct 28.4 L
Plt Count 232 D
PT 14.5
INR 1.10
HCO3 20.1 L
Sodium 143
Potassium 3.9
Chloride 115 H
Carbon Dioxide 18 L
BUN 6 L
Creatinine 0.6
Glucose 92
Calcium 8.4
Vital Signs:
Vital Signs
Temp Pulse Resp BP Pulse Ox
98.4 F 71 18 92/55 100
01/25/25 10:41 01/25/25 12:30 01/25/25 12:30 01/25/25 12:30 01/25/25 12:30
I&O
01/24/25 01/25/25 01/26/25
06:59 06:59 06:59
Intake Total 297.1 / 414.9 1087.8 / 1087.8
Output Total 1040 / 1040 50 / 50
Balance -742.9 / -625.1 1037.8 / 1037.8
Review of Systems
-
Unable to obtain full review of systems at this time due to: Patient Non-verbal
Physical Exam
-
General: Well Developed and Well Nourished
Respiratory: Clear to Auscultation
Cardiac: Regular Rhythm
GI: Soft, Nontender, Nondistended and Normal Bowel Sounds
Musculoskeletal: No Clubbing, No Cyanosis and No Edema
Skin: Warm and Dry
Neuro: Awake and Alert
Data Reviewed
-
Labs: Labs Reviewed by me and Discussed with Physician
[2025-01-25] MEDS: MAGNESIUM SULFATE 102 GRAMS IV (15:14)
--- NOTE | 2025-01-25 16:57 | PTCARENOTE ---
Patient is now down graded to tele status; voiding in bathroom with standby assist; tolerating clear liquids; patient is very tired this shift and is in and out of resting all day. Pt is communicative with staff and family members, but is otherwise
withdrawn and quiet still. RN updated family on plan of care and possible need to discharge to a mental health facility. Family seems very supportive of daughter and expresses thanks to staff. See MAR/flowsheets for further care details.
[2025-01-25] MEDS: VITAMIN B-12 1000 MCG PO (17:15)
[2025-01-25] MEDS: LOVENOX SC (17:15)
--- NOTE | 2025-01-25 18:16 | PTCARENOTE ---
Texted hospitalist team about patient 1x emesis episode and feelings of nausea. RN asked for an antiemetic prn. Awaiting orders
[2025-01-25] MEDS: ZOFRAN 4 MG IV (18:37)
--- NOTE | 2025-01-25 19:34 | PTCARENOTE ---
1:1 paper tubed to 2 north to be added to chart
[2025-01-26 03:05] VITALS: BP 122/70
[2025-01-26] MEDS: TYLENOL 650 MG PO ×2 (05:11→14:30)
[2025-01-26 07:04] LABS: TSH Reflex To Free T4 1.37 uIU/ml (0.47-4.68)
[2025-01-26 07:05] VITALS: BP 107/53
[2025-01-26] MEDS: MIRALAX 17 GRAMS TUBE (07:57)
[2025-01-26] MEDS: THIAMINE INJECTION 200 MG IV (07:58)
[2025-01-26] MEDS: VITAMIN B-12 1000 MCG PO (07:58)
[2025-01-26 09:01] LABS: Hematocrit 32.8 % (37.0-47.0); Hemoglobin 10.4 g/dL (12.0-16.0); Mean Corp Hgb Conc. 31.7 g/dL (33.0-37.0); Mean Corpuscular Hgb 23.2 pg (27.0-31.0); Mean Corpuscular Volume 73.1 fL (81.0-99.0); Mean Platelet Volume 10.9 fL (7.4-10.4); Platelet Count 309 10^3/uL (130-400); Red Blood Cell Count 4.49 10^6/uL (4.20-5.40); Red Cell Dist. Width 13.8 % (11.5-14.5); White Blood Cell Count 5.3 10^3/uL (4.8-10.8)
[2025-01-26 09:10] LABS: ALT (SGPT) 10 U/L (0-35); AST (SGOT) 22 U/L (14-36); Albumin 3.5 g/dl (3.5-5.0); Alkaline Phosphatase 96 U/L (38-126); Blood Urea Nitrogen 4 mg/dl (7-17); Calcium 9.4 mg/dl (8.4-10.2); Carbon Dioxide 22 mmol/L (22-30); Chloride 111 mmol/L (98-107); Estimated Creatinine Clearance > 125 ml/min; Glucose 90 mg/dl (70-99); Potassium 3.7 mmol/L (3.5-5.1); Sodium 142 mmol/L (135-145); Total Bilirubin 0.8 mg/dl (0.2-1.3); Total Protein 6.5 g/dl (6.3-8.2); eGFR > 60.00
--- NOTE | 2025-01-26 09:14 | W.PN.HOSP.TC ---
Today's Communication/Plan
-
- f/u psychiatry
- Continue MSAS protocols
- Monitor for signs of alcohol withdrawl
Assessment / Plan
Assessment / Plan
confirmed intentional drug and alcohol overdose
suicide attempt:
- Patient was successfully extubated today
- Urine drug screen positive for alcohol on admission
- continue patient on [facility] protocol to prevent Wernicke's encephalopathy, correct any nutritional deficiencies, and manage electrolyte imbalances
- Soft restraints as needed to prevent patient from removing her lines or self extubating during a period of agitation from alcohol withdrawal
- Keep potassium over 4 and magnesium over 2 to prevent cardiac arrhythmias, keep monitoring electrolytes
- Upgraded patient to clear liquids
- Speech therapy consulted
- 1:1 after extubation
presumed drug induced Leukopenia:
- Most likely cause is her at home medication of duloxetine, gabapentin, topiramate since they can cause decreased WBC count
- continue to trend wbc count
Hypothyroidism:
- TSH level is 7.9
- Ordered a T4 which came back normal
- No clinical fx of hypothyroidism, no previous history of hypothyroidism, will continue to observe tsh levels
Presumed thalassemia trait vs anemia of chronic disease:
- Hemoglobin is 9.3 and MCV is 72.4, RDW normal
- Ordered iron, TIBC which were normal
- ferritin,folate,b12 normal
Depression:
- Has a previous history of depression documented in prior records and was stated by family members at bedside.
- Hold gabapentin, duloxetine, topiramate
- Psych following, patient has an extensive psychiatric history with fibromyalgia, depression, substance abuse, ptsd, suicide attempt, will need inpatient pysch
DVT prophylaxis is Lovenox
Full code
Anticipated Discharge: 24 - 48 hours
Subjective/Interval History
-
Date of Service: January 26, 2025
No acute medical complaints.
Objective Data
-
Labs:
Laboratory Results
01/26/25 01/26/25
05:44 08:20
WBC 5.3 Cancelled
Hgb 10.4 L Cancelled
Hct 32.8 L Cancelled
Plt Count 309 D Cancelled
Sodium 142 Cancelled
Potassium 3.7 Cancelled
Chloride 111 H Cancelled
Carbon Dioxide 22 Cancelled
BUN 4 L Cancelled
Creatinine 0.6 Cancelled
Glucose 90 Cancelled
Calcium 9.4 Cancelled
Total Bilirubin 0.8 Cancelled
AST 22 Cancelled
ALT 10 Cancelled
Alkaline Phosphatase 96 Cancelled
Vital Signs:
Vital Signs
Temp Pulse Resp BP Pulse Ox
99.1 F 81 19 107/53 98
01/26/25 07:05 01/26/25 07:05 01/26/25 07:05 01/26/25 07:05 01/26/25 08:00
I&O
01/25/25 01/26/25 01/27/25
06:59 06:59 06:59
Intake Total 297.1 / 414.9 2247.8 / 2247.8
Output Total 1040 / 1040 50 / 50
Balance -742.9 / -625.1 2197.8 / 2197.8
Review of Systems
-
History Source: Patient
All other systems: Reviewed and negative
Physical Exam
-
General: Well Developed and Well Nourished
Respiratory: Clear to Auscultation
Cardiac: Regular Rhythm
GI: Soft, Nontender, Nondistended and Normal Bowel Sounds
Musculoskeletal: No Clubbing, No Cyanosis and No Edema
Skin: Warm and Dry
Neuro: Awake and Alert
Data Reviewed
-
Labs: Labs Reviewed by me and Discussed with Physician
--- NOTE | 2025-01-26 09:32 | W.PN.UPDATE ---
Update Note
Progress Note Update
I saw and evaluated the patient. I reviewed the resident�s note and agree with findings and plan as documented in the resident�s note.
Patient complains of headache.
Gen: NAD, awake and alert
Eyes: EOMI, PERRLA, no scleral icterus.
Neck: supple.
CV: Tachycardic, regular rhythm, +S1/S2, no m/r/g.
Resp: CTAB, no rales, wheezes, or rhonchi.
Skin: No rashes.
Neuro: CN 2-12 intact, non-focal.
Psych: Depressed mood, slightly flat affect
CXR: No focal airspace disease. No pneumothorax.
Intentional drug overdose:
-h/o depression
-reportedly took 25 tabs of gabapentin + ETOH (blood alcohol level 0.1, alcohol intoxication)
-UDS NEG
-Initially intubated for airway protection, then extubated
-cont thiamine/folate/MSAS
-psych following, will need inpt psych, cont 1:1
FULL/Lovenox
Medically optimized/cleared for discharge. Case management aware.
--- NOTE | 2025-01-26 10:29 | PTOTSP ---
SPEECH THERAPY SWALLOW EVALUATION:
Patient exhibits clinical signs of mild pharyngeal dysphagia, likely chronic 2/2 EOE and acutely exacerbated by recent brief endotracheal intubation 2/2 drug/alcohol overdose. Patient remains at risk for aspiration/related complications; However,
given largely intact mentation and 100% supervision, suspect patient will be able to tolerate p.o. diet with aspiration precautions in place. Recommend Regular texture diet, thin liquids. Medications as best tolerated. Aspiration precautions: 100%
supervision; Upright positioning; Small bites/sips; Slow rate of intake; Intersperse liquids; Alternate textures; Monitor closely for any signs of aspiration and d/c oral diet if any decline in mental or respiratory status. ST to follow, assess diet
tolerance and modify as appropriate, determine indication for instrumental assessment of swallowing as appropriate.
RECOMMEND:
1) Regular texture diet, thin liquids
2) Medications as best tolerated
3) Aspiration precautions: 100% supervision; Upright positioning; Small bites/sips; Slow rate of intake; Intersperse liquids; Alternate textures; Monitor closely for any signs of aspiration and d/c oral diet if any decline in mental or respiratory
status
4) ST to follow, determine indication for instrumental assessment of swallowing as appropriate
[2025-01-26 11:00] VITALS: BP 121/64
[2025-01-26] MEDS: FOLVITE 50.2 MG IV (13:53)
--- NOTE | 2025-01-26 14:26 | W.PN.UPDATE ---
Update Note
Progress Note Update
patient seen chart reviewed. spoke with nursing and with case mgt. sister at bedside. the patient was clearly angry with me as i am keeping her from being discharged to home and would not speak. i did inform her that given my fears for her safety
were she to be discharged today i am filing a 302 petition with her hospitalist for five days of in pt treatment. she will see dr kirkland tomorrow. what concerns me is that she told me yesterday that she wishes she had and that she called her
bf not bc she wanted him to save her but to say goodbye to him. did not start any psychiatric medications at this point. continue w one to one.
[2025-01-26 15:00] VITALS: BP 110/73
--- NOTE | 2025-01-26 15:35 | CM ---
senior manager creative services reviewed patient's chart and spoke with physicians today, per psychiatry plan is to proceed with 302, manager of case management provided paperwork for a 302, and psychiatry completed along with attending, and final paperwork was then faxed back to
[facility] to file.
302 paperwork is on front of chart.
Plan; To faxed referrals to behavioral health facilities, patient was at [facility] in past.
[2025-01-26] MEDS: LOVENOX SC (17:28)
[2025-01-26 19:12] VITALS: BP 109/72
[2025-01-26 23:28] VITALS: BP 124/81
[2025-01-27 03:17] VITALS: BP 114/76
[2025-01-27] MEDS: TYLENOL 1000 MG PO (03:23)
[2025-01-27 07:30] VITALS: BP 125/87
[2025-01-27] MEDS: ZOFRAN 4 MG IV (07:55)
[2025-01-27] MEDS: THIAMINE INJECTION 200 MG IV (08:32)
[2025-01-27] MEDS: VITAMIN B-12 1000 MCG PO (08:33)
[2025-01-27] MEDS: MIRALAX 17 GRAMS TUBE (08:35)
[2025-01-27 08:40] LABS: Hemoglobin 10.3 g/dL (12.0-16.0); Mean Corp Hgb Conc. 32.2 g/dL (33.0-37.0); Mean Corpuscular Hgb 23.3 pg (27.0-31.0); Mean Corpuscular Volume 72.2 fL (81.0-99.0); Mean Platelet Volume 11.2 fL (7.4-10.4); Platelet Count 298 10^3/uL (130-400); Red Blood Cell Count 4.43 10^6/uL (4.20-5.40); Red Cell Dist. Width 13.7 % (11.5-14.5); White Blood Cell Count 4.3 10^3/uL (4.8-10.8)
--- NOTE | 2025-01-27 08:50 | W.PN.UPDATE ---
Addendum entered and electronically signed by Rashi Presley MD 01/27/25 13:19:
Total time spent on d/c = 33 min. This included today's physical exam, progress note, review of laboratory and diagnostic data, preparation of discharge documents and prescriptions, and discussions about the pt's hospital course and discharge plan
with the patient and other medical records library professor involved in the patient's care.
Original Note:
Update Note
Progress Note Update
I saw and evaluated the patient. I reviewed the resident�s note and agree with findings and plan as documented in the resident�s note.
Patient without new complaints.
Pt seen and examined with RN No Ferro present at bedside for the entirety of the interview and physical exam:
Gen: NAD, awake and alert
Eyes: EOMI, PERRLA, no scleral icterus.
Neck: supple.
CV: RRR, +S1/S2, no m/r/g.
Resp: CTAB anteriorly, no rales, wheezes, or rhonchi.
Skin: No rashes.
Neuro: CN 2-12 intact, non-focal.
Psych: slightly flat affect
CXR: No focal airspace disease. No pneumothorax.
Intentional drug overdose:
-h/o depression
-reportedly took 25 tabs of gabapentin + ETOH (blood alcohol level 0.1, alcohol intoxication)
-UDS NEG
-Initially intubated for airway protection, then extubated
-cont thiamine/folate/MSAS
-psych following, will need inpt psych, cont 1:1, 302 completed
FULL/Lovenox
Remains medically optimized/cleared for discharge. Case management aware.
[2025-01-27 09:01] LABS: Blood Urea Nitrogen 5 mg/dl (7-17); Calcium 9.4 mg/dl (8.4-10.2); Carbon Dioxide 25 mmol/L (22-30); Chloride 110 mmol/L (98-107); Estimated Creatinine Clearance > 125 ml/min; Glucose 88 mg/dl (70-99); Sodium 142 mmol/L (135-145); eGFR > 60.00
--- NOTE | 2025-01-27 09:49 | W.PN.HOSP.TC ---
Today's Communication/Plan
-
- f/u with psych
Assessment / Plan
Assessment / Plan
confirmed intentional drug and alcohol overdose
suicide attempt:
- Patient is in the process of being committed to 5 days of involuntary inpatient treatment as per psychs recc
- Patient was successfully extubated today
- Urine drug screen positive for alcohol on admission
- continue patient on MSAS protocol to prevent Wernicke's encephalopathy, correct any nutritional deficiencies, and manage electrolyte imbalances
- Soft restraints as needed to prevent patient from removing her lines or self extubating during a period of agitation from alcohol withdrawal
- Upgraded patient to regular diet
- Speech therapy consulted
- 1:1 after extubation
presumed drug induced Leukopenia:
- Most likely cause is her at home medication of duloxetine, gabapentin, topiramate since they can cause decreased WBC count
- continue to trend wbc count
Hypothyroidism:
- TSH level is 7.9
- Ordered a T4 which came back normal
- No clinical fx of hypothyroidism, no previous history of hypothyroidism, will continue to observe tsh levels
Presumed thalassemia trait vs anemia of chronic disease:
- Hemoglobin is 9.3 and MCV is 72.4, RDW normal
- Ordered iron, TIBC which were normal
- ferritin,folate,b12 normal
Depression:
- Has a previous history of depression documented in prior records and was stated by family members at bedside.
- Hold gabapentin, duloxetine, topiramate
- Psych following, patient has an extensive psychiatric history with fibromyalgia, depression, substance abuse, ptsd, suicide attempt in 2017
DVT prophylaxis is Lovenox
Full code
Anticipated Discharge: 24 - 48 hours
Subjective/Interval History
-
Date of Service: January 27, 2025
Pt has no acute medical complaints. Pt is angry that she is being committed to involuntary hospital treatment.
Objective Data
-
Labs:
Laboratory Results
01/27/25
07:52
WBC 4.3 L
Hgb 10.3 L
Hct 32.0 L
Plt Count 298
Sodium 142
Potassium 4.0
Chloride 110 H
Carbon Dioxide 25
BUN 5 L
Creatinine 0.6
Glucose 88
Calcium 9.4
Vital Signs:
Vital Signs
Temp Pulse Resp BP Pulse Ox
98.5 F 69 14 125/87 99
01/27/25 07:30 01/27/25 07:30 01/27/25 07:30 01/27/25 07:30 01/27/25 09:23
I&O
01/26/25 01/27/25 01/28/25
06:59 06:59 06:59
Intake Total 2247.8 / 2247.8 1310 / 1310
Output Total 50 / 50
Balance 2197.8 / 2197.8 1310 / 1310
Review of Systems
-
History Source: Patient
All other systems: Reviewed and negative
Physical Exam
-
General: Well Developed and Well Nourished
Respiratory: Clear to Auscultation
Cardiac: Regular Rhythm
GI: Soft, Nontender, Nondistended and Normal Bowel Sounds
Musculoskeletal: No Clubbing, No Cyanosis and No Edema
Skin: Warm and Dry
Neuro: Awake and Alert
Data Reviewed
-
Labs: Labs Reviewed by me and Discussed with Physician
[2025-01-27 11:31] VITALS: BP 114/74
--- NOTE | 2025-01-27 12:05 | W.PN.UPDATE ---
Update Note
Progress Note Update
Pt is a 24 yo female admitted for OD on Gabapentin with alcohol, requiring intubation. 2-physician 302 was filed yesterday (Mon) afternoon, petitioned by Dr Alberts, due to pt's presentation- continued suicidal thoughts, stated she wished she had
from the OD, called her boyfriend to say goodbye. Reviewed record, pt seen resting in bed. Pt awake, c/o nausea. Affect is flat/detached. Pt states she was 'overwhelmed' and took the OD 'impulsively.' Insight appears limited. Pt reminded
she is on a 302, family asking how long she will be here. Reviewed need for inpatient psych placement with [facility].
Imp: MDD; serious OD suicide attempt
Rec: Inpatient psychiatric placement on 302
Will restart psychotropic medications at lower doses to manage potential discontinuation symptoms/treat depression
Will follow
--- NOTE | 2025-01-27 12:25 | CM ---
Addendum entered by Sage Velez 01/27/25 14:30:
Per UC, pickling grader time -6:30 p.m.
CM met with pt and pt's father now at bedside. both pt and her father are aware of pickling grader time.
[facility] signs and displays sales representative Ayala is aware of discharge time.
Addendum entered by Sage Velez 01/27/25 13:03:
[facility] denied a referral.
[facility] accepted the pt for admission today, spoke to production material coordinator Ayala [phone].
CM met with pt and pt's mother at bedside. Both pt and her mother Lorne were notified that [facility] offered a bed and they expressed their agreement. Pt expressed to me her unpleasant feelings regarding being 302ed, explanation provided and pt
reluctantly expressed her understanding. Pt stated she will prefer PHP program and pt has been informed that with 302 commitment PHP is not an option. Pt has been informed that [facility] team will set up PHP program after the completion of
inpatient psychiatric treatment.
According to MD pt is medically stable to be discharge. Per Psychiatrist today, inpatient psychiatric hospital level of care recommended with 302 commitment.
Per [facility] transplant coordinator Ayala, no presert required and they will obtain an authorization.
to arrange ambulance transportation BLS. PMNC completed and left with .
Please fax discharge instructions to [facility] at [phone]
D/C plan: [facility] today.
Original Note:
CM following re: discharge planning.
Reviewed [pt's chart, met with pt.
According to Psychiatrist inpatient psychiatric level of care recommended. Pt has 302 commitment that valid till Monday. 302 document on chart.
A referral made to following inpatient psychiatric hospitals: [facility], [facility], [facility] and [facility].
Awaiting for determinations.
D/C plan: Inpatient psychiatric [facility], 302 commitment.
CM will follow to assist pt with discharge to inpatient psychiatric hospital.
[2025-01-27] MEDS: CYMBALTA DELAYED RELEASE 30 MG PO (12:26)
[2025-01-27] MEDS: FOLVITE 50.2 MG IV (14:03)
--- NOTE | 2025-01-27 14:03 | W.DCSUMMARY ---
Discharge Summary
Discharge Data
Date of Admission: 01/24/25
Date of Discharge: 01/27/25
-
Pending Results: No
Hospital Course
Discharging Physician : Dr. Rashi Presley and Dr. Tony Lazar
Disposition : Inpatient psychiatric facility
Primary care physician : Dr. An Ferreira
Principal Discharge diagnosis : Intentional drug overdose, alcohol intoxication, suicide attempt, hypothyroidism, leukopenia
Chronic Discharge diagnosis : Depression major severe recurrent
Hospital Course : 24 year old female patient with past medical history of depression presented to [facility] for presumed intentional drug overdose. She had taken 25 tablets of gabapentin with alcohol and then called her boyfriend before
passing out. Boyfriend then called EMS. She was unresponsive when she presented to the emergency department and was vomiting so was then intubated to protect her airway.
Problem #1: Intentional drug overdose/alcohol intoxication/suicide attempt--- According to emergency medical services, she had taken 25 gabapentin along with alcohol in a suicide attempt. She arrived unresponsive to the ED and was then intubated
due to risk of aspiration because of vomiting and given IV Zosyn, propofol, fentanyl which were all discontinued after she was extubated 24 hours later by anesthesiology physician assistant. After she was extubated, psychiatry was consulted and patient told her that she
had a medical history of fibromyalgia, depression, substance abuse, major depression recurrent severe, PTSD, and a suicide attempt in 2017. Patient was then placed on one-to-one, soft restraints then after second evaluation it was decided to place
her in an inpatient psych facility because of psychiatrists fear for her safety and suicidal tendencies. Her duloxetine was changed to 30 mg p.o. from 60 and topiramate was changed to 25 mg from 50. Her gabapentin and norethindrone estradiol was
put on hold.
Problem #2: Hypothyroidism---patient's TSH was 7.9. No symptoms of hypothyroidism like fatigue, constipation, dry skin, sensitivity to cold. T4 was ordered and came back normal. Check TSH levels with PCP in 1-2 weeks.
Problem #3: Presumed chronic anemia from monthly menses---iron studies are all normal. B12 was on the lower side of normal, repleted. Continue on discharge.
Problem #4: Major severe recurrent depression---has previous history of depression stated in prior records as well as confirmed by family members at bedside. Her duloxetine and topiramate are continued at lower doses and gabapentin is held.
Psychiatry was consulted and have evaluated her. She is being shifted to inpatient psychiatric facility where further care will take place.
Problem #5: Leukopenia---on discharge WBC levels 4.3, continue to trend, CBC in 1 to 2 weeks with PCP.
Important imaging findings :
Chest x-ray on 01/24/2025:
IMPRESSION:
Lines and tubes, as above.
No focal airspace disease. No pneumothorax.
Procedure findings :
Discharge Plan
-
Patient Disposition: Psych Facility
Discharge Diagnosis/Procedures: intentional drug overdose, alcohol intoxication, hypothyroidism, anemia of chronic disease, depression, suicide attempt
Condition: Good
Diet: Regular
Activity: As tolerated
Driving Restrictions: No driving
Bathing Restrictions: After seen by
Blood Work: CBC with pcp in 1 week
Referrals:
An Ferreira PA [Family Provider] - in one to two weeks
Additional Discharge Medication Instructions: Duloxetine was decreased from 60 mg to 30 mg. To be taken once a day.
Topiramate was decreased from 50 mg to 25 mg. To be taken once a day.
Cyanocobalamin 1000 mcg once a day.
Prescriptions:
New
cyanocobalamin (vitamin B-12) [Vitamin B-12] 1,000 mcg Tablet
1,000 mcg PO DAILY Qty: 30 0RF
topiramate 25 mg Tablet
25 mg PO DAILY Qty: 30 0RF
duloxetine 30 mg Capsule,Delayed Release(Dr/Ec)
30 mg PO DAILY Qty: 30 0RF
Held
norethindrone-e.estradiol-iron [Junel FE 1.5/30 (28)] 1.5 mg-30 mcg (21)/75 mg (7) tablet
1 tab PO DAILY
Hold Instructions: Resume on 02/03/25. hold until seen by psych facility
gabapentin 300 mg capsule
300 mg PO BID
Hold Instructions: Resume on 02/03/25. hold until seen by psych facility
Patient Comments:
01/24/2025: last filled 12/25/24, 60 tabs for 30 days
gabapentin 100 mg capsule
100 mg PO TID
Hold Instructions: Resume on 02/03/25. hold until seen by psych facility
Patient Comments:
01/24/2025: last filled 01/10/25, 90 tabs for 30 days
Discontinued
topiramate 50 mg tablet
50 mg PO DAILY
duloxetine 60 mg capsule,delayed release(DR/EC)
60 mg PO DAILY
Discharge Orders:
Discharge Patient (As Directed); Ordered 01/27/25
Ordered By: Rashi Presley
Discharge Date and Time
Print Language: MEXICAN
[2025-01-27 16:09] VITALS: BP 111/81
[2025-01-27] MEDS: LOVENOX SC (16:48)
== END 2025-01-27 17:53 | DRG 918 ==
LOC: 2 NORTH 12:38
PROVIDERS: Student in an Organized Health Care Education/Training Program; ADMITTING PHYSICIAN Internal Medicine; ATTENDING PHYSICIAN Internal Medicine; CONSULT PHYSICIAN Psychiatry & Neurology Psychiatry; EMERGENCY PHYSICIAN Student in an Organized Health Care Education/Training Program; FAMILY PHYSICIAN Physician Assistant Medical; OTHER PHYSICIAN Internal Medicine
PROC: 0BH18EZ Insertion of Endotracheal Airway into Trachea, Via Natural or Artificial Opening Endoscopic (ICD-10-PCS; 2025-01-24)
PROC: 5A1935Z Respiratory Ventilation, Less than 24 Consecutive Hours (ICD-10-PCS; 2025-01-24)
DX: T42.6X2A Poisoning by other antiepileptic and sedative-hypnotic drugs, intentional self-harm, initial encounter (principal); F33.2 Major depressive disorder, recurrent severe without psychotic features; F10.929 Alcohol use, unspecified with intoxication, unspecified; F43.10 Post-traumatic stress disorder, unspecified; D50.9 Iron deficiency anemia, unspecified; M79.7 Fibromyalgia; E83.42 Hypomagnesemia; E03.9 Hypothyroidism, unspecified; D70.2 Other drug-induced agranulocytosis; T42.6X5A Adverse effect of other antiepileptic and sedative-hypnotic drugs, initial encounter; Z63.8 Other specified problems related to primary support group; Z79.899 Other long term (current) drug therapy; Y90.5 Blood alcohol level of 100-119 mg/100 ml; Y92.009 Unspecified place in unspecified non-institutional (private) residence as the place of occurrence of the external cause; Z91.51 Personal history of suicidal behavior; Z81.8 Family history of other mental and behavioral disorders
CPT/HCPCS: 31500; 36600; 43752; 51701; 71045; 80048; 80053; 80143; 80179; 80306; 82077; 82607; 82728; 82746; 82805; 82962; 83540; 83550; 83735; 84100; 84443; 84478; 84703; 85025; 85027; 85045; 85610; 92610; 93005; 94002; 94003; 96361; 96365; 96367; 96375; 96376; 99291

== ENCOUNTER 2025-03-29 14:30 | Emergency (ER) | payer BC, SELFPAY ==
[2025-03-29 14:33] VITALS: BP 129/88
--- NOTE | 2025-03-29 16:05 | ED.GENMED ---
History of Present Illness
General
Chief Complaint: Crisis Evaluation
Source: patient
Exam Limitations: none
Time Seen by Provider: 03/29/25 15:50
History of Present Illness
History of Present Illness:
See MDM
Past History
Past History
ED Past Medical History: Psychiatric
ED Past Surgical History: None
Social History
Tobacco: Non-smoker
Alcohol: None
Drug: None
Phy Exam
Physical Exam
Physical Exam:
See MDM
Course
Orders/Labs/Results
Orders:
Orders
03/29/25 16:04
Crisis Consult Urgent
Reason for Consult: SI
03/29/25 16:41
observation [ED Special Safety Observation] ONCE
Observation level: One to Two
Vital Signs
Initial and Last Documented VS:
Initial Vital Signs
Temp Pulse Resp BP Pulse Ox
98.7 F 89 16 129/88 100
03/29/25 14:33 03/29/25 14:33 03/29/25 14:33 03/29/25 14:33 03/29/25 14:33
Last Documented Vital Signs
Temp Pulse Resp BP Pulse Ox
98.7 F 89 16 129/88 100
03/29/25 14:33 03/29/25 14:33 03/29/25 14:33 03/29/25 14:33 03/29/25 16:07
MDM/Problems Addressed
Differential Diagnosis Includes:
HPI and MDM Narrative:
24-year-old female presenting for evaluation of increased depression and suicidal thoughts. Patient states she has been dealing with these issues for several months. She has attempted self-harm in the past by overdosing prescription medication.
She states over the past several days, symptoms have worsened. She denies any specific plan of hurting yourself but does have thoughts of not being alive. She states she told her partner about these symptoms and believes that her partner told her
mother which brought her to the emergency department. Patient does have a flat affect and appears depressed. She does not appear to be intoxicated or under the influence of illicit drugs. Given that the patient is already in intensive outpatient
therapy, she will likely require inpatient psychiatric stay. Patient does acknowledge this
Physical exam
General: Well appearing and non-toxic
HEENT: protecting airway
Neck: appears supple
CV: No evidence of cyanosis
Resp: No accessory muscle use
Abd: Non-distended
Extremities: No deformities
Neuro: alert
Psych: Depressed affect
Skin: Intact
Problems Addressed including Acute and Chronic Conditions affecting care:
1. Depression and suicidal thoughts
Acuity: acute
Prognosis: stable
Details: Will have crisis evaluate
Updates
5:30 PM Case discussed with crisis. Patient wants to go home and wants to continue her intensive outpatient treatment. Crisis states that she has adequate resources at home and will provide more and contracted to safety
Differential Diagnosis (but not limited to): Depression, suicidal thoughts
Testing considered: Blood work
Drug therapy (if applicable): OTC meds, please see d/c instruction regarding Rx drugs
Amount and/or Complexity of Data Reviewed
Clinical info obtained from: Patient
External data reviewed: N/A
Labs I independently reviewed (but not limited to): N/A
Radiology: N/A
Pulse Ox: not hypoxic
EKG independently reviewed: N/A
Primary Care Sales Representative: N/A
Critical Care: N/A
Risk of Complication:
Social Determinants of health: Good social support
Discussed with other providers: N/A
Escalation of Care includes Admit/Obs: After being observed in the Emergency Department, pt stable for discharge.
Occasional wrong word or 'sound a like' substitutions may have occurred due to the inherent limitations of voice recognition software. Read the chart carefully and recognize, using context, where substitutions have occurred.
*Pulse Oximetry
SaO2: 100
Oxygen Mode of Delivery: Room air
Patient hypoxic: no
*Critical Care Note
Total Time (30-74mins, 75-104mins- exclusive of procedures): Not Applicable
ED Attending Note
-
Portions of this chart may have been created with voice recognition software.� Occasional wrong word or��sound alike� substitutions may have occurred due to the inherent limitations of voice recognition software.
Discharge Plan
Departure
Patient Disposition: Home (Routine Discharge)
Date of Disposition: 03/29/25
Time of Disposition: 17:34
Patient with high blood pressure during this ER visit?: No
Discharge Problem:
Depression
Instructions: Depression, Adult (DC)
Prescriptions:
No Action
norethindrone-e.estradiol-iron [ ()] 1.5 mg-30 mcg (21)/75 mg (7) tablet
1 tab PO DAILY
gabapentin 300 mg capsule
300 mg PO BID
Patient Comments:
01/24/2025: last filled 12/25/24, 60 tabs for 30 days
gabapentin 100 mg capsule
100 mg PO TID
Patient Comments:
01/24/2025: last filled 01/10/25, 90 tabs for 30 days
cyanocobalamin (vitamin B-12) [Vitamin B-12] 1,000 mcg Tablet
1,000 mcg PO DAILY Qty: 30 0RF
topiramate 25 mg Tablet
25 mg PO DAILY Qty: 30 0RF
duloxetine 30 mg Capsule,Delayed Release(Dr/Ec)
30 mg PO DAILY Qty: 30 0RF
Referrals:
Katelynn Ibarra PA-C [Family Provider, Family Practice]
Activity Restrictions/Additional Instructions:
Please return for any worsening symptoms.
You may return at any time if you have further concerns.
Please follow up with your doctor at the first available appointment, preferably this week.
Please refer to the resources provided by crisis.
Interventions
Interventions:
*Risk Screen - Suicide Last Done: 03/29/25 14:33
*Neglect/Abuse Screening Last Done: 03/29/25 14:37
ED-Psychological Assessment Last Done: 03/29/25 16:41
Discharge Date and Time
Print Language: SOUTH [place]UD[place]
[2025-03-29 17:41] VITALS: BP 116/75
== END 2025-03-29 17:41 | disposition home or self-care (01) ==
LOC: EMR 14:30
PROVIDERS: EMERGENCY PHYSICIAN Student in an Organized Health Care Education/Training Program; FAMILY PHYSICIAN Physician Assistant Medical
DX: R45.851 Suicidal ideations (principal); F32.A Depression, unspecified; Z91.51 Personal history of suicidal behavior; Z91.013 Allergy to seafood; Z91.018 Allergy to other foods; Z91.048 Other nonmedicinal substance allergy status
CPT/HCPCS: 99284